=== PATIENT | male | born 1945 | race Caucasian/White ===

== ENCOUNTER 2022-02-05 10:30 | Day surgery (SDC) | payer BC, MEDICARE ==
[~2022-02-05] VITALS: Ht 172.7 cm; Wt 84.4 kg
[2022-02-05] MEDS ORDERED: fentaNYL/PF 50MCG/1 ML 2ML syringe IV ONE (11:35)
[2022-02-05] MEDS ORDERED: MIDAZolam 1mg/ml 10ml vial IV ONE (11:35)
== END 2022-02-05 12:00 | disposition home or self-care (01) ==
LOC: SSTAY O 10:30
PROVIDERS: ATTEND Student in an Organized Health Care Education/Training Program
DX: I48.91 Unspecified atrial fibrillation (principal); Z53.8 Procedure and treatment not carried out for other reasons; Z79.899 Other long term (current) drug therapy
CPT/HCPCS: 93005; A4620; J7030